=== PATIENT | male | born 1985 | race Caucasian/White ===

== ENCOUNTER 2021-05-28 11:58 | Inpatient (IN) | payer MEDICAID ==
[~2021-05-28] VITALS: Ht 180.3 cm; Wt 68.1 kg
[2021-05-28] MEDS ORDERED: normal saline 1000ML IV soln IV ONE (13:00)
[2021-05-28] MEDS ORDERED: metoclopramide 5 mg/ml inj IV ONE (13:20)
[2021-05-28] MEDS ORDERED: pantoprazole 40MG/NS 100ML BAG 100 ML IV ONE (13:20)
[2021-05-28 13:26] LABS: BASOPHILS % (AUTO) 0.2 % (0-1); EOSINOPHILS % (AUTO) 0.1 % (0-6); HEMATOCRIT 46.3 % (42.0-52.0); HEMOGLOBIN 16.4 g/dl (14.0-17.9); LYMPHOCYTES # (AUTO) 1.4 X10'3 (1.1-4.8); LYMPHOCYTES % (AUTO) 9.7 % (21-51); MEAN CORPUSCULAR HEMOGLOBIN 30.9 PG (27.0-31.0); MEAN CORPUSCULAR HGB CONC 35.4 g/dL (33.0-36.5); MEAN CORPUSCULAR VOLUME 87.5 FL (78-98); MEAN PLATELET VOLUME 7.5 FL (7.4-10.4); MONOCYTES # (AUTO) 0.8 X10'3 (0-0.9); MONOCYTES % (AUTO) 5.6 % (2-12); NEUTROPHILS # (AUTO) 11.9 X10'3 (1.8-7.7); NEUTROPHILS % (AUTO) 84.4 % (42-75); PLATELET COUNT 407 X10'3 (140-440); RED BLOOD COUNT 5.28 X10'6 (4.70-6.10); RED CELL DISTRIBUTION WIDTH 13.1 % (11.5-14.5); WHITE BLOOD COUNT 14.1 X10'3 (4.5-11.0)
[2021-05-28 13:42] LABS: ALANINE AMINOTRANSFERASE 25 U/L (12-78); ALBUMIN 4.4 G/DL (3.4-5.0); ALBUMIN/GLOBULIN RATIO 1.2 (1.1-1.5); ALKALINE PHOSPHATASE 59 IU/L (46-116); ANION GAP 10 (8-16); ASPARTATE AMINO TRANSFERASE 11 U/L (10-37); BILIRUBIN,TOTAL 0.8 MG/DL (0.1-1.0); BLOOD UREA NITROGEN 21 MG/DL (7-18); BUN/CREATININE RATIO 16.9 (5.4-32.0); CALCIUM 9.7 MG/DL (8.5-10.1); CHLORIDE 101 MMOL/L (99-107); CREATININE 1.24 MG/DL (0.60-1.10); GLUCOSE 141 MG/DL (70-104); POTASSIUM 3.4 MMOL/L (3.5-5.1); SODIUM 142 MMOL/L (135-145); TOTAL CARBON DIOXIDE 30.9 MMOL/L (24-32); TOTAL PROTEIN 8.1 G/DL (6.4-8.2); eGFR 67 ML/MIN
[2021-05-28] MEDS ORDERED: CefTRIAXone 2gm/D5W 50ml BAG 50 ML IV ONE (14:15)
[2021-05-28] MEDS ORDERED: NO HOME MEDS (14:22)
[2021-05-28] MEDS ORDERED: proCHLORperazine 10 MG/2 ml inj IV PRN (15:05)
[2021-05-28] MEDS ORDERED: potassium Cl 20 mEq SR tablet PO PRN ×2 (15:05)
[2021-05-28] MEDS ORDERED: acetaminophen 325mg tablet PO PRN (15:05)
[2021-05-28] MEDS ORDERED: ondansetron/PF 4mg/2ml inj IV PRN (15:05)
[2021-05-28] MEDS ORDERED: magnesium 4gm in 100ml NS 100 ML IV PRN (15:05)
[2021-05-28] MEDS ORDERED: magnesium 2GM in 50ml NS 50 ML IV PRN (15:05)
[2021-05-28 15:11] LABS: HEMATOCRIT 44.1 % (42.0-52.0); HEMOGLOBIN 15.1 g/dl (14.0-17.9); MEAN CORPUSCULAR HEMOGLOBIN 30.3 PG (27.0-31.0); MEAN CORPUSCULAR HGB CONC 34.4 g/dL (33.0-36.5); MEAN CORPUSCULAR VOLUME 88.3 FL (78-98); MEAN PLATELET VOLUME 7.7 FL (7.4-10.4); PLATELET COUNT 355 X10'3 (140-440); RED BLOOD COUNT 4.99 X10'6 (4.70-6.10); RED CELL DISTRIBUTION WIDTH 13.4 % (11.5-14.5); WHITE BLOOD COUNT 13.9 X10'3 (4.5-11.0)
[2021-05-28] MEDS: pantoprazole 40MG/NS 100ML BAG 100 ML IV SCH ×3 (16:00→21:00)
[2021-05-28] MEDS: normal saline 1000ml 1,000 ML IV SCH (16:44)
[2021-05-28 17:42] VITALS: BP 103/65
[2021-05-28 20:00] VITALS: BP 98/55
[2021-05-28] MEDS: docusate sod 100mg capsule PO SCH (20:00)
[2021-05-28] MEDS: K and/or MAG REPLACEMENT MC SCH ×2 (20:00→22:02)
[2021-05-28 20:44] LABS: HEMATOCRIT 39.5 % (42.0-52.0); HEMOGLOBIN 13.6 g/dl (14.0-17.9); MEAN CORPUSCULAR HEMOGLOBIN 30.7 PG (27.0-31.0); MEAN CORPUSCULAR HGB CONC 34.5 g/dL (33.0-36.5); MEAN CORPUSCULAR VOLUME 88.8 FL (78-98); MEAN PLATELET VOLUME 7.7 FL (7.4-10.4); PLATELET COUNT 303 X10'3 (140-440); RED BLOOD COUNT 4.45 X10'6 (4.70-6.10); RED CELL DISTRIBUTION WIDTH 12.9 % (11.5-14.5); WHITE BLOOD COUNT 9.5 X10'3 (4.5-11.0)
[2021-05-28] MEDS: potassium CL 10mEq/100ml bag 100 ML IV PRN (22:01)
[2021-05-29] VITALS (8 sets, daily range): BP systolic 96–118; BP diastolic 46–63
[2021-05-29] MEDS: pantoprazole 40MG/NS 100ML BAG 100 ML IV SCH ×6 (01:00→22:01)
[2021-05-29] MEDS: normal saline 1000ml 1,000 ML IV SCH ×3 (01:05→21:05)
[2021-05-29] MEDS: potassium CL 10mEq/100ml bag 100 ML IV PRN ×2 (02:00→05:51)
[2021-05-29 05:08] LABS: HEMATOCRIT 37.5 % (42.0-52.0); HEMOGLOBIN 12.8 g/dl (14.0-17.9); MEAN CORPUSCULAR HEMOGLOBIN 30.7 PG (27.0-31.0); MEAN CORPUSCULAR HGB CONC 34.2 g/dL (33.0-36.5); MEAN CORPUSCULAR VOLUME 89.6 FL (78-98); MEAN PLATELET VOLUME 7.5 FL (7.4-10.4); PLATELET COUNT 283 X10'3 (140-440); RED BLOOD COUNT 4.19 X10'6 (4.70-6.10); RED CELL DISTRIBUTION WIDTH 13.5 % (11.5-14.5); WHITE BLOOD COUNT 9.1 X10'3 (4.5-11.0)
[2021-05-29 05:25] LABS: ALANINE AMINOTRANSFERASE 17 U/L (12-78); ALBUMIN 3.3 G/DL (3.4-5.0); ALBUMIN/GLOBULIN RATIO 1.3 (1.1-1.5); ALKALINE PHOSPHATASE 47 IU/L (46-116); ANION GAP 10 (8-16); ASPARTATE AMINO TRANSFERASE 8 U/L (10-37); BILIRUBIN,TOTAL 0.8 MG/DL (0.1-1.0); BLOOD UREA NITROGEN 22 MG/DL (7-18); BUN/CREATININE RATIO 23.9 (5.4-32.0); CALCIUM 8.2 MG/DL (8.5-10.1); CHLORIDE 109 MMOL/L (99-107); CREATININE 0.92 MG/DL (0.60-1.10); GLUCOSE 90 MG/DL (70-104); POTASSIUM 3.9 MMOL/L (3.5-5.1); SODIUM 145 MMOL/L (135-145); TOTAL CARBON DIOXIDE 26.4 MMOL/L (24-32); TOTAL PROTEIN 5.9 G/DL (6.4-8.2); eGFR > 90 ML/MIN
[2021-05-29] MEDS ORDERED: LIDOcaine Viscous 15ml cup ONE (06:48)
[2021-05-29] MEDS ORDERED: fentaNYL/PF 50MCG/1 ML 2ML syringe ONE (06:48)
[2021-05-29] MEDS ORDERED: MIDAZolam 1 MG/ML 5ML VIAL ONE (06:48)
[2021-05-29] MEDS: K and/or MAG REPLACEMENT MC SCH ×2 (08:00→19:38)
[2021-05-29] MEDS: docusate sod 100mg capsule PO SCH ×2 (08:00→22:05)
[2021-05-29 10:22] LABS: HEMATOCRIT 34.6 % (42.0-52.0); HEMOGLOBIN 12.1 g/dl (14.0-17.9); MEAN CORPUSCULAR HEMOGLOBIN 31.2 PG (27.0-31.0); MEAN CORPUSCULAR VOLUME 89.2 FL (78-98); MEAN PLATELET VOLUME 7.3 FL (7.4-10.4); PLATELET COUNT 276 X10'3 (140-440); RED BLOOD COUNT 3.87 X10'6 (4.70-6.10); RED CELL DISTRIBUTION WIDTH 13.6 % (11.5-14.5)
[2021-05-29 14:03] LABS: HEMATOCRIT 34.9 % (42.0-52.0); MEAN CORPUSCULAR HEMOGLOBIN 30.7 PG (27.0-31.0); MEAN CORPUSCULAR HGB CONC 34.2 g/dL (33.0-36.5); MEAN CORPUSCULAR VOLUME 89.8 FL (78-98); MEAN PLATELET VOLUME 7.7 FL (7.4-10.4); PLATELET COUNT 263 X10'3 (140-440); RED BLOOD COUNT 3.89 X10'6 (4.70-6.10); RED CELL DISTRIBUTION WIDTH 13.6 % (11.5-14.5); WHITE BLOOD COUNT 7.3 X10'3 (4.5-11.0)
[2021-05-29 20:11] LABS: HEMATOCRIT 32.5 % (42.0-52.0); HEMOGLOBIN 11.2 g/dl (14.0-17.9); MEAN CORPUSCULAR HGB CONC 34.6 g/dL (33.0-36.5); MEAN CORPUSCULAR VOLUME 89.8 FL (78-98); MEAN PLATELET VOLUME 7.6 FL (7.4-10.4); PLATELET COUNT 235 X10'3 (140-440); RED BLOOD COUNT 3.62 X10'6 (4.70-6.10); RED CELL DISTRIBUTION WIDTH 13.5 % (11.5-14.5); WHITE BLOOD COUNT 5.6 X10'3 (4.5-11.0)
[2021-05-29] MEDS: diatr meglu/diatrizoate 30ml oral sol.-(3 dose) bottle PO SCH (21:59)
[2021-05-30] VITALS: BP 106/59
[2021-05-30] MEDS: pantoprazole 40MG/NS 100ML BAG 100 ML IV SCH ×3 (02:39→11:00)
[2021-05-30] MEDS: normal saline 1000ml 1,000 ML IV SCH (03:36)
[2021-05-30 04:45] LABS: HEMATOCRIT 38.2 % (42.0-52.0); MEAN CORPUSCULAR HEMOGLOBIN 30.8 PG (27.0-31.0); MEAN CORPUSCULAR HGB CONC 34.1 g/dL (33.0-36.5); MEAN CORPUSCULAR VOLUME 90.4 FL (78-98); MEAN PLATELET VOLUME 7.7 FL (7.4-10.4); PLATELET COUNT 257 X10'3 (140-440); RED BLOOD COUNT 4.23 X10'6 (4.70-6.10); RED CELL DISTRIBUTION WIDTH 13.4 % (11.5-14.5); WHITE BLOOD COUNT 6.1 X10'3 (4.5-11.0)
[2021-05-30 05:00] LABS: ALANINE AMINOTRANSFERASE 22 U/L (12-78); ALBUMIN 3.6 G/DL (3.4-5.0); ALBUMIN/GLOBULIN RATIO 1.2 (1.1-1.5); ALKALINE PHOSPHATASE 45 IU/L (46-116); ANION GAP 10 (8-16); ASPARTATE AMINO TRANSFERASE 15 U/L (10-37); BLOOD UREA NITROGEN 15 MG/DL (7-18); BUN/CREATININE RATIO 16.1 (5.4-32.0); CALCIUM 7.5 MG/DL (8.5-10.1); CHLORIDE 105 MMOL/L (99-107); CREATININE 0.93 MG/DL (0.60-1.10); GLUCOSE 85 MG/DL (70-104); POTASSIUM 3.7 MMOL/L (3.5-5.1); SODIUM 140 MMOL/L (135-145); TOTAL CARBON DIOXIDE 25.5 MMOL/L (24-32); TOTAL PROTEIN 6.7 G/DL (6.4-8.2); eGFR > 90 ML/MIN
--- NOTE | 2021-05-30 06:48 | NUR ---
Patient in room [facility]A. I have received report from POLLO HARRIS and had the opportunity to ask questions and assume patient care.
[2021-05-30 07:00] VITALS: BP 115/66
[2021-05-30] MEDS: docusate sod 100mg capsule PO SCH (08:00)
[2021-05-30] MEDS: diatr meglu/diatrizoate 30ml oral sol.-(3 dose) bottle PO SCH ×2 (08:01→09:48)
[2021-05-30] MEDS: K and/or MAG REPLACEMENT MC SCH (08:07)
[2021-05-30 08:17] LABS: HEMATOCRIT 34.2 % (42.0-52.0); HEMOGLOBIN 12.1 g/dl (14.0-17.9); MEAN CORPUSCULAR HEMOGLOBIN 31.3 PG (27.0-31.0); MEAN CORPUSCULAR HGB CONC 35.5 g/dL (33.0-36.5); MEAN CORPUSCULAR VOLUME 88.2 FL (78-98); MEAN PLATELET VOLUME 7.4 FL (7.4-10.4); PLATELET COUNT 263 X10'3 (140-440); RED BLOOD COUNT 3.87 X10'6 (4.70-6.10); RED CELL DISTRIBUTION WIDTH 13.2 % (11.5-14.5); WHITE BLOOD COUNT 6.3 X10'3 (4.5-11.0)
[2021-05-30] MEDS ORDERED: iohexol 300mg/ml 100ml inj. ONE (10:20)
[2021-05-30] MEDS ORDERED: PANT-47 PO (12:12)
--- NOTE | 2021-05-30 13:50 | NUR ---
PATIENT STABLE AND APPROPRIATE FOR DISCHARGE, IV TAKEN OUT, EDUCATION GIVEN, NEW MEDS E-SCRIPTED TO PREFERRED PHARMACY, ALL BELONGINGS SENT WITH PATIENT, PATIENT WALKED TO LOBBY WHERE PATIENT WILL DRIVE SELF HOME
== END 2021-05-30 13:50 | disposition home or self-care (01) | DRG 241 ==
LOC: ER 12:01 → ED HOLD 15:06 → SUR 3N 17:34
PROVIDERS: ADMIT Family Medicine; ATTEND Family Medicine
PROC: 0DB68ZX Excision of Stomach, Via Natural or Artificial Opening Endoscopic, Diagnostic (ICD-10-PCS; principal; 2021-05-29)
PROC: BW211ZZ Computerized Tomography (CT Scan) of Abdomen and Pelvis using Low Osmolar Contrast (ICD-10-PCS; 2021-05-30)
DX: K25.4 Chronic or unspecified gastric ulcer with hemorrhage (principal); E87.6 Hypokalemia; K44.9 Diaphragmatic hernia without obstruction or gangrene; K29.70 Gastritis, unspecified, without bleeding; K21.00 Gastro-esophageal reflux disease with esophagitis, without bleeding; F12.90 Cannabis use, unspecified, uncomplicated; Z80.8 Family history of malignant neoplasm of other organs or systems
CPT/HCPCS: 36415; 43239; 71045; 74177; 80053; 83605; 83735; 85025; 85027; 85610; 86885; 86900; 86901; 87081; 93005; 99152; 99285; A4620; C9113; G0378; J0696; J2250; J2765; J3010; J3480; J7030; J7040; Q9963; Q9967